=== PATIENT | female | born 1985 ===

== ENCOUNTER 2019-07-01 13:05 | Outpatient (CLI) | payer BC, SELFPAY ==
--- NOTE | 2019-07-04 09:00 | WPDHOLTEREM ---
Holter/Event Monitor Holter/Event Monitor Date of procedure: 07/01/19 Procedure Type: 48 hour holter monitor Indications: Tachycardia Conclusion: 1. 48 hour holter monitor on 07/01/19. 2. Underlying rhythm is sinus rhythm. HR range 56-162 bpm; average HR 96 bpm. 3. No premature supraventricular complexes. No supraventricular tachycardia. 4. There are 3 premature ventricular complexes. No ventricular tachycardia. 5. No sinoatrial or atrioventricular blocks. No significant pauses greater than 2 seconds. 6. Patient reports chest pain, sob and palpitations which demonstrate sinus rhythm, HR range 87-152 bpm.
== END 2019-07-01 13:06 | disposition home or self-care (01) ==
LOC: CHSCARD 13:10
PROVIDERS: PCP Nurse Practitioner Family; Visit Provider Nurse Practitioner Family
DX: R00.0 Tachycardia, unspecified (principal)
CPT/HCPCS: 93225; 93226

== ENCOUNTER 2021-10-13 14:14 | Outpatient (NON) | payer OTHER, SELFPAY ==
[2021-10-13 14:33] LABS: Add Urine Microscopic? YES; Appearance Urine Turbid (Clear); Bilirubin Urine Negative (Negative); Blood Urine 2+ (Negative); Color Urine Brown (Yellow); Glucose Urine UA Negative (Negative); Ketones Urine 1+ (Negative); Leukocyte Esterase Ur 3+ LEU/UL (Negative); Nitrate Urine Negative (Negative); Protein Urine 2+ (Negative); Specific Grav Ur >= 1.030 (1.010-1.020)
[2021-10-13 14:36] LABS: Bacteria Urine 3+ /hpf; Squamous Epithelial Cell Urine Moderate /hpf (Few); WBC Urine >75 /hpf (0-3)
== END 2021-10-13 14:15 | disposition home or self-care (01) ==
LOC: CHSLAB 14:16
PROVIDERS: Visit Provider Nurse Practitioner Family
DX: R39.9 Unspecified symptoms and signs involving the genitourinary system (principal)
CPT/HCPCS: 81001; 87077; 87086; 87088

== ENCOUNTER 2022-10-04 10:44 | Outpatient (CLI) | payer OTHER, BC, SELFPAY ==
[2022-10-04 11:05] LABS: Basophils Absolute Auto 0.02 K/mm3 (0.00-0.10); Basophils Percent Auto 0.4 % (0.0-1.0); Eosinophils Absolute Auto 0.06 K/mm3 (0.02-0.50); Eosinophils Percent Auto 1.1 % (1.0-6.0); Hematocrit 35.6 % (35.0-49.0); Hemoglobin 11.5 g/dL (12.0-15.0); Immature Granulocyte Absolute 0.01 K/mm3 (0.00-0.00); Immature Granulocyte Percent A 0.2 % (0.0-0.0); Lymphocytes Absolute Auto 1.58 K/mm3 (1.10-4.50); Lymphocytes Percent Auto 28.5 % (18.0-42.0); Mean Corpuscular HGB Conc 32.3 g/dL (32.0-36.0); Mean Corpuscular Hemoglobin 29.6 pg (27.0-31.0); Mean Corpuscular Volume 91.5 fL (78.0-102.0); Mean Platelet Volume 10.2 fl (9.2-11.8); Monocytes Percent Auto 7.2 % (2.0-11.0); Neutrophils Absolute Auto 3.5 K/mm3 (1.7-7.2); Neutrophils Percent Auto 62.6 % (50.0-70.0); Platelet Count Result 293 K/mm3 (150-420); Red Blood Count 3.89 M/mm3 (4.20-5.40); Red Cell Distribution Width 13.1 % (11.6-14.4); White Blood Count 5.5 K/mm3 (4.8-10.8)
[2022-10-04 11:52] LABS: Alanine Aminotransferase 15 U/L (14-59); Albumin Level 3.9 g/dL (3.4-5.0); Alkaline Phosphatase 66 U/L (46-116); Anion Gap 8 mmol/L (8-16); Aspartate Amino Transferase 19 U/L (15-37); Bilirubin,Total 0.5 mg/dL (0.00-1.00); Blood Urea Nitrogen 13 mg/dL (7-18); Calcium 9.8 mg/dL (8.5-10.1); Carbon Dioxide 27 mmol/L (21-32); Chloride 103 mmol/L (98-108); Cholesterol 246 mg/dL (0-200); Estimated Glomerular Filt Rate > 60; Glucose 91 mg/dL (70-99); HDL Direct 57 mg/dL (40-60); LDL Cholesterol Calculated 146 mg/dL (<130); Osmolality Calculated 286 mOsm/kg (285-295); Potassium 4.1 mmol/L (3.5-5.1); Sodium 138 mmol/L (136-145); Total Protein 7.3 g/dL (6.4-8.2); Triglycerides 216 mg/dL (0-150)
[2022-10-04 12:27] LABS: Thyroid Stimulating Hormone Reflex 1.55 u/IU/mL (0.36-3.74)
[2022-10-07 06:07] LABS: FSH 10.7 mIU/mL (***); LH 4.2 mIU/mL (***)
[2022-10-11 14:34] LABS: Estrogen 155 pg/mL
== END 2022-10-04 10:45 | disposition home or self-care (01) ==
LOC: CHSLAB 10:47
PROVIDERS: PCP Nurse Practitioner Family; Visit Provider Nurse Practitioner Family
DX: R61 Generalized hyperhidrosis (principal)
CPT/HCPCS: 36415; 80053; 80061; 82672; 83001; 83002; 84443; 85025

== ENCOUNTER 2023-01-22 04:19 | Observation (INO) | payer OTHER, BC, SELFPAY ==
[2023-01-22] VITALS (20 sets, daily range): BP systolic 91–129; BP diastolic 51–86; PULSE 64–107; RESP 10–18; TEMP 36.3–37.2; O2SAT 92–100
--- NOTE | ~2023-01-22 | XR_ITS ---
EXAMINATION: XR retrograde pyelo w/stent RT DATE: 01/22/2023 13:25 INDICATION: Right internal ureteral stent placement TECHNIQUE: Fluoroscopic images from a right internal ureteral stent placement are submitted for gagandeep huffman 16 seconds of fluoroscopy time. FINDINGS: There is a right double-J internal ureteral stent projecting in expected position, with proximal [place] loop at the level of the renal pelvis and distal loop in the pelvis within the bladder lumen. IMPRESSION: 1. Right internal ureteral stent placement. Please refer to real-time procedural findings for detai ls. Reviewed, dictated and finalized at location A. OR DIE DRAWING CHECKER IMPRESSION: 1. Right internal ureteral stent placement. Please refer to real-time procedu ral findings for details.
--- NOTE | ~2023-01-22 | CT_ITS ---
EXAMINATION: CT abdomen pelvis wo con DATE: 01/22/2023 05:41 INDICATION: Right flank pain TECHNIQUE: Computed tomography (CT) of the abdomen and pelvis was performed without intravenous contr ast. Automated exposure control and iterative reconstruction technique were employed. The dose-length product was 291.51 mGy-cm. COMPARISON: None FINDINGS: Calcified right lower lobe nodule consistent with old granulomatous disease. Heart size is normal. No pericardial or pleural effusion. There is an approximately 2 cm diameter region of high attenuation material at the anterior gastroesophageal junction likely related to endoscopic pulmonary injection a nd endoluminal plication for treatment of reflux disease. Correlate with clinical history. Liver, gal lbladder, spleen, pancreas, bilateral adrenal glands and left kidney are normal. There is an 8 x 4 x 3 mm obstructing stone at the right ureterovesicular junction with moderate more proximal right hydro ureteronephrosis. No other evident urolithiasis. The bladder, anteverted uterus and bilateral adnexa are unremarkable. Bowels including the appendix are normal. Small amount of likely physiologic free f luid in the cul-de-sac. No free intraperitoneal gas. No pathologically enlarged abdominal or pelvic l ymphadenopathy. Mild lumbar levocurvature with mild spondylosis. IMPRESSION: 1. Obstructing 8 x 4 x 3 mm stone at the right ureterovesicular junction with moderate right hydroure teronephrosis. Reviewed, dictated and finalized at location A. WORKER IMPRESSION: 1. Obstructing 8 x 4 x 3 mm stone at the right ureterovesicular junction with m oderate right hydroureteronephrosis.
[2023-01-22] MEDS: SODIUM CHLORIDE 0.9% IV 1,000 ML 999 ML IV CONT (05:14)
[2023-01-22] MEDS: ONDANSETRON INJ 4 MG/2 ML VIAL IV PUSH ×2 (05:15→05:55)
[2023-01-22] MEDS: HYDROmorphone HCL INJ (*CRX) 1 MG/ML SYR IV PUSH ×4 (05:15→10:12)
--- NOTE | 2023-01-22 05:35 | ED.GENADULT ---
HPI - General Adult General Chief complaint: Urogenital-Female Stated complaint: I think I have a kidney stone, cannot urinate Time Seen by Provider: 01/22/23 05:03 History of Present Illness HPI narrative: patient is a 37-year-old female who presents to emergency department with chief complaint of possible kidney stone. The patient reports that she has prior history of kidney stones and does have stone still present on her right kidney the patient reports that she started having dysuria for several days and was treated with Macrobid and also has been trying to push fluids patient states that the pain is not improved and reports that she started having pain in the right flank area the patient states she started become concerned for possible kidney stone and decided to come to the emergency department for evaluation. Related Data Allergies Allergy/AdvReac Type Severity Reaction Status Date / Time No Known Allergies Allergy Unknown Verified 11/01/22 08:50 Review of Systems Review of Systems: A 10 system review of systems was completed on the patient and is negative except for what is stated in the HPI. Nursing and ancillary documentation was reviewed. PMFSH Past Medical History Medical History Iron deficiency anemia Kidney stone Migraine Nicotine dependence Pain of sternum Surgical History Surgical History H/O dilation and curettage History of hysteroscopy Previous section x3 Family History Family History Mother Asthma Grandparent Congestive heart failure Grandparent Breast cancer Pancreatic cancer Social History Social History Social History: and has 3 children Smoking packs per day: 0.5 Smoking cigarettes per day: 10.0 Smoking status: Former smoker Tobacco type: e-cigarettes/vaping Alcohol intake: current Alcohol use details: 2-3 beers monthly Substance use: never Substance use type: does not use Living arrangements: with family Occupation/Education: occupation Additional occupation/education comments: [employer] Gender identity (if verbalized by the patient): Female Spiritual care concerns: No Exam Narrative: GENERAL: Well-appearing, well-nourished, and in no acute distress. HEAD: Normocephalic, atraumatic. EYES: PERRLA and EOMI. ENT: Nares clear, no rhinorrhea or epistaxis. Mucous membranes moist. NECK: Supple. CHEST: Clear to auscultation. No respiratory distress. HEART: Regular rate and rhythm. No murmur heard. Normal peripheral pulses. ABDOMEN: Soft, nontender, nondistended, normal active bowel sounds. EXTREMITIES: Normal range of motion. No edema. SKIN: Warm, dry, no rash. NEURO: No focal deficits. Alert and oriented x3. PSYCH: Normal mood and affect. Course Vital Signs Vital signs: Vital Signs Temperature 36.8 C 01/22/23 04:21 Pulse Rate 101 H 01/22/23 04:21 Respiratory Rate 18 01/22/23 04:21 Blood Pressure 124/80 01/22/23 04:21 Pulse Oximetry 95 01/22/23 04:21 Oxygen Delivery Room Air 01/22/23 04:21 Temperature 36.8 C 01/22/23 04:21 Pulse Rate 101 H 01/22/23 04:21 Respiratory Rate 18 01/22/23 04:21 Blood Pressure 124/80 01/22/23 04:21 Pulse Oximetry 95 01/22/23 04:21 Oxygen Delivery Room Air 01/22/23 04:21 Medical Decision Making Vital Signs Vital Signs: Vital Signs Temperature 36.8 C 01/22/23 04:21 Pulse Rate 101 H 01/22/23 04:21 Respiratory Rate 18 01/22/23 04:21 Blood Pressure 124/80 01/22/23 04:21 Pulse Oximetry 95 01/22/23 04:21 Oxygen Delivery Room Air 01/22/23 04:21 Temperature 36.8 C 01/22/23 04:21 Pulse Rate 101 H 01/22/23 04:21 Respiratory Rate 18 01/22/23 04:21 Blood Pressure
[2023-01-22 05:55] LABS: Basophils Percent Auto 0.3 % (0.2-1.2); Eosinophils Absolute Auto 0.1 K/mm3 (0-0.3); Hemoglobin 10.8 g/dL (12.0-15.0); Immature Granulocyte Absolute 0.01 K/mm3 (0.00-0.031); Immature Granulocyte Percent A 0.1 % (0-0.5); Lymphocytes Absolute Auto 2.36 K/mm3 (0.9-3.2); Lymphocytes Percent Auto 34.1 % (18.3-44.2); Mean Corpuscular HGB Conc 31.8 g/dl (32-36); Mean Corpuscular Hemoglobin 28.1 pg (26-34); Mean Corpuscular Volume 88.3 fl (80-100); Mean Platelet Volume 12.1 fl (7.4-10.4); Monocytes Absolute Auto 0.7 K/mm3 (0.1-0.6); Monocytes Percent Auto 9.8 % (2.6-8.5); Neutrophils Absolute Auto 3.8 K/mm3 (1.3-6.7); Neutrophils Percent Auto 54.7 % (45.5-73.1); Platelet Count Result 222 k/mm3 (150-375); Red Blood Count 3.85 M/mm3 (4.2-5.4); Red Cell Distribution Width 13.2 % (11.5-14.5); White Blood Count 6.9 K/mm3 (4.5-10.0)
[2023-01-22 06:07] LABS: Appearance Urine Cloudy (Clear); Bacteria Urine None Seen /hpf; Bilirubin Urine 2+ (Negative); Blood Urine 3+ (Negative); Color Urine Orange (Yellow); Glucose Urine UA Negative (Negative); Ketones Urine Negative (Negative); Leukocyte Esterase Ur 2+ LEU/UL (Negative); Need Manual Microscopic Reviewed; Nitrate Urine Positive (Negative); Non Pathogenic Casts 0-2; Protein Urine 1+ mg/dL (Negative); Specific Grav Ur 1.027 (1.001-1.035); Squamous Epithelial Cell Urine Few /hpf (Few); WBC Urine 0-5 /hpf
[2023-01-22 06:08] LABS: Add Urine Microscopic? YES
[2023-01-22 06:10] LABS: Alanine Aminotransferase 14 U/L (6-35); Albumin Level 4.6 g/dL (3.5-5.1); Alkaline Phosphatase 57 U/L (38-126); Anion Gap 11 mmol/L (8-16); Aspartate Amino Transferase 30 U/L (14-36); Bilirubin,Total 0.6 mg/dL (0.2-1.3); Blood Urea Nitrogen 22 mg/dL (7-17); Calcium 10.1 mg/dL (8.4-10.2); Carbon Dioxide 18 mmol/L (22-30); Chloride 105 mmol/L (98-107); Estimated CRCL calculation 93 ml/min; Estimated Glomerular Filt Rate > 60; Glucose 117 mg/dL (65-110); Potassium 3.7 mmol/L (3.4-5.0); Sodium 134 mmol/L (137-145)
--- NOTE | 2023-01-22 08:40 | PM.IMHP ---
H&P: HPI History of Present Illness Date/Time: 01/22/23 08:40 Chief Complaint: Right flank pain, dysuria Narrative: 37F who presents with several days of dysuria and UTI like symptoms, who developed right flank pain yesterday evening associated with nausea. Multiple prior stones, she has not required surgical intervention in the past. She denies fevers or chills. She reports she has been on macrobid for several days along with pyridium. I discussed her situation in detail with her and her s/o, her UA demonstrates LE and WBC consistent with ureteral stone, no bacteria on microscopy, however it is nitrite positive, likely from the Azo, her WBC is 6.9. As I cannot totally r/o infection, she agrees with proceeding with cystoscopy and ureteral stent placement and delayed URS/LL to remove the stone once her culture demonstrates sterility. Hopefully, she will be able to discharge with oral antibiotics after her stent placement. Review of Systems Constitutional: Constitutional: Reports as per HPI ENT: Reports system reviewed and no additional complaints, except as documented Respiratory: Respiratory: Reports no additional respiratory complaints Gastrointestinal: Gastrointestinal: Reports abdominal pain Genitourinary: Genitourinary: Reports hematuria, Reports dysuria and Reports flank pain Musculoskeletal: Musculoskeletal: Reports no additional musculoskeletal complaints Integumentary/Breasts: Skin/Breast: Reports system reviewed and no additional complaints, except as docu Neurologic: Reports system reviewed and no additional complaints, except as documented Psychiatric: Psychiatric: Reports no additional psychiatric complaints Endocrine: Endocrine: Reports no additional endocrine complaints Hematologic/Lymphatic: Hematologic/Lymphatic: Reports no additional hematologic/lymphatic complaints Allergic/Immunologic: Allergic/Immunologic: Reports no additional allergic/immunologic complaints PMF Past Medical History Medical History Iron deficiency anemia Kidney stone Migraine Nicotine dependence Pain of sternum Surgical History Surgical History H/O dilation and curettage History of hysteroscopy Previous section x3 Family History Family History Mother Asthma Grandparent Congestive heart failure Grandparent Breast cancer Pancreatic cancer Social History Social History Social History: and has 3 children Smoking packs per day: 0.5 Smoking cigarettes per day: 10.0 Smoking status: Former smoker Tobacco type: e-cigarettes/vaping Alcohol intake: current Alcohol use details: 2-3 beers monthly Substance use: never Substance use type: does not use Living arrangements: with family Occupation/Education: occupation Additional occupation/education comments: [employer] Gender identity (if verbalized by the patient): Female Spiritual care concerns: No Meds Home Medications and Allergies Home Medications Medication Instructions Recorded Confirmed Type buspirone 15 mg tablet 15 mg PO BID PRN anxiety #60 tabs 02/24/22 10/04/22 Rx diclofenac sodium 50 mg 50 mg PO TID PRN pain #45 tabs 08/11/22 10/04/22 Rx tablet,delayed release metoprolol succinate 50 mg 50 mg PO DAILY #90 tabs 08/11/22 10/04/22 Rx tablet,extended release 24 hr ondansetron HCl 4 mg tablet 4 mg PO Q8H PRN nausea and 08/11/22 10/04/22 Rx vomiting #30 tabs rizatriptan 10 mg tablet (Maxalt) 10 mg PO ONCE PRN migraine 08/11/22 10/04/22 Rx headache #20 tabs tamsulosin 0.4 mg capsule 0.4 mg PO DAILY PRN kidney stone 08/11/22 10/04/22 Rx #20 caps tizanidine 2 mg capsule 2 mg PO TID PRN muscle spasticity 08/11/22 10/04/22 Rx #20 caps sertraline 100 mg t
--- NOTE | 2023-01-22 12:04 | PC.NURSE ---
Spoke with Katty SINGLETON in the PACU regarding pt status. She stated she would call back when they had a room available for the pt
--- NOTE | 2023-01-22 12:32 | WPDHPUPDATE1 ---
History and Physical Update Update Date/Time: 01/22/23 12:32 History and Physical has been reviewed, including an updated exam of the patient. There are NO changes in the patient's condition. Risks, benefits, and alternatives have been discussed and questions answered. Patient agrees to proceed with procedure.
--- NOTE | 2023-01-22 12:50 | WPDANESEPPF ---
Anes - Initial Pre Proc Eval Procedure: Operation Date: 01/22/23 12:30 Proposed Procedures p Cysto, RPG, Stone Ext, Stent Placement(Right) - Lorne Castillo MD Date/Time: 01/22/23 12:50 Surgeon: Lorne Castillo MD Pre Op Diagnosis: I think I have a kidney stone, cannot urinate Patient Data Age: 37 Gender: F Height: 1.63 m Weight: 59.09 kg Last Vital Signs Temp 36.8 C 01/22/23 04:21 Pulse 98 01/22/23 11:31 Resp 16 01/22/23 11:31 BP 121/86 01/22/23 11:31 Pulse Ox 98 01/22/23 11:31 O2 Del Method Room Air 01/22/23 04:21 Allergies Allergy/AdvReac Type Severity Reaction Status Date / Time No Known Allergies Allergy Unknown Verified 11/01/22 08:50 Home Medications Medication Instructions Recorded Confirmed Type buspirone 15 mg tablet 15 mg PO BID PRN anxiety #60 tabs 02/24/22 10/04/22 Rx diclofenac sodium 50 mg 50 mg PO TID PRN pain #45 tabs 08/11/22 10/04/22 Rx tablet,delayed release metoprolol succinate 50 mg 50 mg PO DAILY #90 tabs 08/11/22 10/04/22 Rx tablet,extended release 24 hr ondansetron HCl 4 mg tablet 4 mg PO Q8H PRN nausea and 08/11/22 10/04/22 Rx vomiting #30 tabs rizatriptan 10 mg tablet (Maxalt) 10 mg PO ONCE PRN migraine 08/11/22 10/04/22 Rx headache #20 tabs tamsulosin 0.4 mg capsule 0.4 mg PO DAILY PRN kidney stone 08/11/22 10/04/22 Rx #20 caps tizanidine 2 mg capsule 2 mg PO TID PRN muscle spasticity 08/11/22 10/04/22 Rx #20 caps sertraline 100 mg tablet See Rx Instructions .Route 10/14/22 10/18/22 Rx .COMPLEX #42 tabs oxycodone-acetaminophen 5 mg-325 1 tablet PO Q6H PRN pain 3 days 01/22/23 Rx mg tablet (Percocet) #12 tabs Laboratory Tests 01/22/23 01/22/23 04:31 04:43 WBC 6.9 K/mm3 (4.5-10.0) RBC 3.85 L M/mm3 (4.2-5.4) Hgb 10.8 L g/dL (12.0-15.0) Hct 34.0 L % (37.0-47.0) MCV 88.3 fl (80-100) MCH 28.1 pg (26-34) MCHC 31.8 L g/dl (32-36) RDW 13.2 % (11.5-14.5) Plt Count 222 k/mm3 (150-375) MPV 12.1 H fl (7.4-10.4) Immature Gran % (Auto) 0.1 % (0-0.5) Neut % (Auto) 54.7 % (45.5-73.1) Lymph % (Auto) 34.1 % (18.3-44.2) [place] % (Auto) 9.8 H % (2.6-8.5) Eos % (Auto) 1.0 % (0-4.4) Baso % (Auto) 0.3 % (0.2-1.2) Lymph # (Auto) 2.36 K/mm3 (0.9-3.2) [place] # (Auto) 0.7 H K/mm3 (0.1-0.6) Eos # (Auto) 0.1 K/mm3 (0-0.3) Baso # (Auto) 0.0 K/mm3 (0.0-0.1) Abs Immat Gran (auto) 0.01 K/mm3 (0.00-0.031) Absolute Neuts (auto) 3.8 K/mm3 (1.3-6.7) Absolute Nucleated RBC 0.0 K/mm3 (0.0-0.012) Nucleated RBC % 0.0 % (0.0-0.2) Sodium 134 L mmol/L (137-145) Potassium 3.7 mmol/L (3.4-5.0) Chloride 105 mmol/L (98-107) Carbon Dioxide 18 L mmol/L (22-30) Anion Gap 11 mmol/L (8-16) BUN 22 H mg/dL (7-17) Creatinine 0.60 L mg/dL (0.7-1.0) Estim Creat Clear Calc 93 ml/min Estimated GFR > 60 (59 - ) Glucose 117 H mg/dL (65-110) Calcium 10.1 mg/dL (8.4-10.2) Total Bilirubin 0.6 mg/dL (0.2-1.3) AST 30 U/L (14-36) ALT 14 U/L (6-35) Alkaline Phosphatase 57 U/L (38-126) Total Protein 8.0 g/dL (6.3-8.2) Albumin 4.6 g/dL (3.5-5.1) Urine Color Cherry Plain H (Yellow) Urine Appearance Cloudy H (Clear) Urine pH 5.0 (5.0-9.0) Ur Specific [place] 1.027 (1.001-1.035) Urine Protein 1+ H mg/dL (Negative) Urine Glucose (UA) Negative mg/dL (Negative) Urine Ketones Negative mg/dL (Negative) Ur Blood (Man) 3+ H (Negative) Urine Nitrate Positive H (Negative) Urine Bilirubin 2+ H (Negative) Urine Urobilinogen 1.0 mg/dL (<2.0) Add Ur Microanalysis Reviewed Leukocyte Esterase Rfl 2+ H RUPA/UL (Negativ
--- NOTE | 2023-01-22 13:24 | W.PM.PROC2 ---
Procedure Note - Detailed Date of Procedure 01/22/23 Pre-op Diagnosis Right ureteral stone Post-op Diagnosis Same Procedure Performed 1. Cystoscopy and right ureteral stent placement 2. Right retrograde pyelogram 3. Fluoroscopy with interpretation of images, less than 1 hour. Surgeon Lorne Castillo MD Anesthesia General Findings 1. No bladder masses or lesions 2. Right retrograde pyelogram with moderate hydronephrosis. 3. Appropriate placement of right ureteral stent. 4. Flocculent pyridium stained urine drained upon stent placement, sent for culture. Description of Procedure After a discussion of benefits and risks the patient offered informed written consent. She was taken to the operating room and anesthesia was administered, she was transferred to the dorsal lithotomy position and prepped and draped in the standard sterile fashion. A call to order was performed. A cystoscope was placed atraumatically and cystoscopy performed with the aforementioned findings. The right ureteral orifice was approached with the cystoscope and a wire advanced into the right ureteral orifice. A 5F open-ended catheter was then advanced to the midureter and a retrograde pyelogram was performed with the aforementioned findings. The wire was replaced and over the wire a 6F right ureteral stent was placed with excellent curl in renal pelvis noted on closing KUB and in bladder by direction vision. The bladder was drained and the cystoscope removed. She was cleaned of betadine prep, transferred to the supine position and awoken from anesthesia. Implants 6F variable length stent. Estimated Blood Loss 2 Complications No immediate complications Condition Stable Disposition PACU
[2023-01-22] MEDS: LACTATED RINGERS 1,000 ML 30 ML IV CONT (13:25)
--- NOTE | 2023-01-22 14:54 | ADMGEN ---
This patient, Shefali Pickard, was admitted to Medical Room 247-. Patient/family oriented to hospital policies and general routines including ID bracelet, bed and alarms, visiting hours, pain management, procedures, bathroom and other care routines, personal items, smoking policy, room service/diet, and visiting hours. Information on how to activate the Rapid Response Team has been discussed. Patient/Family are encouraged to report perceived risks to care and to ask questions if they do not understand what they are told or what they should do.
[2023-01-22] MEDS: METOPROLOL SUCCINATE EXT REL 50 MG TABCR PO (15:46)
[2023-01-22] MEDS: SERTRALINE HCL 50 MG TABLET 100 MG PO (16:38)
[2023-01-22] MEDS: HYDROcodone/acetaminophen (*CRX) 5-325 MG TABLET 1 TAB PO (20:40)
[2023-01-23 02:19] VITALS: BP 96/57; PULSE 96; RESP 17; TEMP 36.6; O2SAT 96
[2023-01-23 05:13] VITALS: BP 91/46; PULSE 99; RESP 17; TEMP 36.9; O2SAT 97
[2023-01-23 06:13] LABS: Hematocrit 31.2 % (37.0-47.0); Hemoglobin 9.7 g/dL (12.0-15.0)
[2023-01-23 06:35] LABS: Anion Gap 7 mmol/L (8-16); Blood Urea Nitrogen 14 mg/dL (7-17); Calcium 9.7 mg/dL (8.4-10.2); Carbon Dioxide 22 mmol/L (22-30); Chloride 109 mmol/L (98-107); Estimated CRCL calculation 110 ml/min; Estimated Glomerular Filt Rate > 60; Glucose 95 mg/dL (65-110); Potassium 3.6 mmol/L (3.4-5.0); Sodium 138 mmol/L (137-145)
[2023-01-23 08:00] VITALS: O2SAT 97
[2023-01-23] MEDS: SERTRALINE HCL 50 MG TABLET 100 MG PO (08:49)
[2023-01-23 08:50] VITALS: BP 94/60
[2023-01-23] MEDS: ENOXAPARIN 40 MG/0.4 ML SYRINGE SUB-Q (08:50)
[2023-01-23] MEDS: TAMSULOSIN HCL 0.4 MG CAPSULE PO (10:11)
[2023-01-23] MEDS: HYOSCYAMINE SULFATE 0.125 MG TABLET SUBLINGUAL (10:11)
[2023-01-23] MEDS: HYDROcodone/acetaminophen (*CRX) 5-325 MG TABLET 1 TAB PO (11:20)
--- NOTE | 2023-01-23 11:32 | WPDUROPN2 ---
Progress Note: A&P Assessment and Plan (1) Ureterolithiasis: Code(s): N20.1 - Calculus of ureter Status: Acute Assessment and Plan: Will discharge home today on pain medications, anticholinergics, antibiotics. Outpatient stone management will be arranged Subjective Subjective Date/Time Seen: 01/23/23 11:32 Interval history: Feeling well today. Minimal discomfort from the stent. Review of Systems Review of Systems: No acute distress Resting comfortably in bed Objective Data Vital Signs Vital Signs: Vital Signs - 24 hr 01/22/23 13:25 01/22/23 13:40 01/22/23 13:45 Temperature 97.8 F Pulse Rate 64 90 88 Respiratory Rate 10 L 10 L 10 L Blood Pressure 92/51 L 103/73 106/79 Pulse Oximetry 99 100 100 Oxygen Delivery Simple Face Mask Simple Face Mask Simple Face Mask Oxygen Flow Rate 6 6 6 01/22/23 14:00 01/22/23 14:30 01/22/23 14:43 Temperature Pulse Rate 90 100 105 H Respiratory Rate 10 L 13 12 Blood Pressure 106/68 114/73 114/70 Pulse Oximetry 100 98 98 Oxygen Delivery Simple Face Mask Room Air Room Air Oxygen Flow Rate 6 01/22/23 14:59 01/22/23 15:06 01/22/23 15:46 Temperature 97.5 F L 97.6 F Pulse Rate 96 98 98 Respiratory Rate 16 16 Blood Pressure 110/74 114/65 Pulse Oximetry 99 100 Oxygen Delivery Oxygen Flow Rate 01/22/23 16:09 01/22/23 18:45 01/22/23 21:10 Temperature 97.3 F L 97.5 F L 98.9 F Pulse Rate 106 H 107 H 93 Respiratory Rate 16 16 18 Blood Pressure 114/78 98/53 L 91/51 L Pulse Oximetry 99 92 96 Oxygen Delivery Oxygen Flow Rate 01/22/23 20:00 01/23/23 02:19 01/23/23 05:13 Temperature 97.9 F 98.5 F Pulse Rate 93 96 99 Respiratory Rate 18 17 17 Blood Pressure 96/57 L 91/46 L Pulse Oximetry 96 96 97 Oxygen Delivery Room Air Oxygen Flow Rate 01/23/23 08:50 01/23/23 08:00 Temperature Pulse Rate Respiratory Rate Blood Pressure 94/60 L Pulse Oximetry 97 Oxygen Delivery Room Air Oxygen Flow Rate Intake/Output Intake/Output: Intake & Output 01/20/23 01/21/23 01/22/23 01/23/23 23:59 23:59 23:59 23:59 Intake Total 1920 840 Output Total 1300 Balance 620 840 Meds/Results Medications: Active Medications Generic Name Dose Route Start Last Admin Trade Name Freq PRN Reason Stop Dose Admin Hydrocodone Bitart/Acetaminophen 1 tab 01/22/23 12:33 01/23/23 11:20 Hydrocodone/Acetaminophen (*Crx) 5-325 Mg Tablet PO 1 tab Q4H PRN Administration Pain Rated 1-6 Buspirone HCl 15 mg 01/22/23 15:19 Buspirone Hcl 5 Mg Tablet PO BID PRN anxiety Diclofenac Sodium 50 mg 01/22/23 15:19 Diclofenac Sod 25 Mg Tablet.Ec PO TID PRN pain Docusate Sodium 100 mg 01/22/23 17:00 01/23/23 08:50 Docusate Sodium 100 Mg Capsule PO Not Given BID TEREZA Enoxaparin Sodium 40 mg 01/23/23 09:00 01/23/23 08:50 Enoxaparin 40 Mg/0.4 Ml Syringe SUB-Q 40 mg DAILY TEREZA Administration Fentanyl Citrate 25 mcg 01/22/23 12:55 Fentanyl Citrate Inj (*Crx) 100 Mcg/2 Ml Vial IV PUSH Q2M PRN Pain Hyoscyamine 0.125 mg 01/22/23 12:33 01/23/23 10:11 Hyoscyamine Sulfate 0.125 Mg Tablet SUBLINGUAL 0.125 mg Q6H PRN Administration Bladder Spasm Ceftriaxone Sodium 1 gm in 50 mls @ 100 mls/hr 01/23/23 09:00 01/23/23 10:10 Rocephin 1 Gm/Ns 50 Ml IVPB Infused Q24H TEREZA Infusion Lactated Ringer's 1,000 mls @ 30 mls/hr 01/22/23 12:55 01/22/23 14:36 Lr - Lactated Ringers Iv IV CONT Infused .Q24H TEREZA Infusion Metoprolol Succinate 50 mg 01/22/23 15:30 01/22/23 15:46 Metoprolol Succinate Ext Rel 50 Mg Tabcr PO 50 mg DAILY TEREZA Administration Miscellaneous Information 1 each 01/23/23 00:01 Med Rec Order Clarification XX 02/22/23 00:00 CLARIFY TEREZA Morphine Sulfate 2 mg 01/22/23 12:33 Morphine Sulfate (*Crx) 2 Mg/Ml Inj IV PUSH Q2H PRN Pain Rated 7-10 Naloxone HCl 0.1 mg
--- NOTE | 2023-01-23 11:38 | PM.DS ---
DS: Admitting Diagnosis Discharge Date 01/23/2023 Admitting Diagnosis Right ureteral stone DS: Discharge Diagnosis Discharge Diagnosis Plan Discharge home today. Stent in place DS: Summary Hospital Course Reason for hospitalization: She was admitted the hospital. She had an abnormal urinalysis likely consistent with Pyridium affect. She had a large distal right ureteral stone. Stent was placed. She did well postoperatively. She had no fevers. Pain is controlled. She will be discharged home with outpatient stone management Hospital Course: See above Status at Discharge Cognitive/behavioral status at discharge: Stable Time Spent with Patient Time attestation: Total time spent providing and/or coordinating discharge services: Less than 30 minutes Exam Narrative: No acute distress Normal breathing Alert orient x3 Pain control DS: Data Data Completed and Pending Labs on day of discharge: Labs from last 24 hours 01/23/23 05:41 Hgb 9.7 L Hct 31.2 L Sodium 138 Potassium 3.6 Chloride 109 H Carbon Dioxide 22 Anion Gap 7 L BUN 14 D Creatinine 0.50 L Estim Creat Clear Calc 110 Estimated GFR > 60 Glucose 95 Calcium 9.7 Discharge Plan Discharge Patient Disposition: Home, Self-Care Discharge Instructions: Okay to discharge home. Urology will call to arrange outpatient stone management Patient Instructions: How to Stop Smoking (GEN) Follow-up/Referrals: Coral Meredith APRN [Primary Care Provider] - Discharge Medications: New oxycodone-acetaminophen [Percocet] 5-325 mg tablet 1 tablet PO Q6H PRN (Reason: pain) 3 Days Qty: 12 0RF hydrocodone-acetaminophen 5-325 mg tablet 1 tablet PO Q6H PRN (Reason: pain) Qty: 20 0RF phenazopyridine [Pyridium] 200 mg tablet 200 mg PO TID PRN (Reason: pain) Qty: 30 0RF oxybutynin chloride 5 mg tablet 5 mg PO TID Qty: 60 0RF ciprofloxacin HCl [Cipro] 500 mg tablet 500 mg PO Q12H Qty: 6 0RF Continued buspirone 15 mg tablet 15 mg PO BID PRN (Reason: anxiety) Qty: 60 2RF Rx Instructions: Take 1 tablet (15 mg) by mouth every 12 hours, up to two times daily as needed. tizanidine 2 mg capsule 2 mg PO TID PRN (Reason: muscle spasticity) Qty: 20 0RF Rx Instructions: may cause drowsiness ondansetron HCl 4 mg tablet 4 mg PO Q8H PRN (Reason: nausea and vomiting) Qty: 30 3RF diclofenac sodium 50 mg tablet,delayed release (DR/EC) 50 mg PO TID PRN (Reason: pain) Qty: 45 0RF Rx Instructions: Be sure to take with food. metoprolol succinate 50 mg tablet extended release 24 hr 50 mg PO DAILY Qty: 90 2RF rizatriptan [Maxalt] 10 mg tablet 10 mg PO ONCE PRN (Reason: migraine headache) Qty: 20 0RF Rx Instructions: Take 1 tablet with onset of symptoms. May repeat once after at least 2 hours, do not exceed 30 mg/24 hours. sertraline 100 mg tablet See Rx Instructions .ROUTE .COMPLEX Qty: 42 1RF Dose Instruction: TAKE 1 TABLET BY MOUTH EVERY DAY Rx Instructions: TAKE 1 TABLET BY MOUTH EVERY DAY Discontinued tamsulosin 0.4 mg capsule 0.4 mg PO DAILY PRN (Reason: kidney stone) Qty: 20 0RF
== END 2023-01-23 13:45 | disposition home or self-care (01) ==
LOC: ANHED 07:54 → ANHSURGERY 08:51 → ANH2MED 15:02
PROVIDERS: Admitting Provider Urology; Emergency Provider Emergency Medicine; PCP Nurse Practitioner Family; Visit Provider Urology
PROC: (CPT 52352; principal; 2023-01-22 11:30)
DX: N13.2 Hydronephrosis with renal and ureteral calculous obstruction (principal); D50.0 Iron deficiency anemia secondary to blood loss (chronic); F41.9 Anxiety disorder, unspecified; R11.2 Nausea with vomiting, unspecified; G43.909 Migraine, unspecified, not intractable, without status migrainosus; M62.838 Other muscle spasm; Z87.891 Personal history of nicotine dependence; F10.90 Alcohol use, unspecified, uncomplicated; Z79.891 Long term (current) use of opiate analgesic
CPT/HCPCS: 52332; 36415; 74176; 74420; 80048; 80053; 81001; 81025; 85014; 85018; 85025; 87086; 96361; 96365; 96375; 96376; 99285; A9270; C1758; C1769; C2617; G0378; J0696; J1100; J1170; J1650; J2405; J2704; J7030; J7120; Q9966

== ENCOUNTER 2023-03-19 10:02 | Outpatient (CLI) | payer OTHER, BC, SELFPAY ==
--- NOTE | ~2023-03-19 | XR_ITS ---
XR abdomen/kub 1V 03/19/2023 10:18 INDICATION: Renal stone TECHNIQUE: KUB COMPARISON: None FINDINGS: Bowel gas pattern is normal. There is no evidence of free air, mass, organomegaly, ascites or obstruction. No abnormal calculi are seen. The bones appear intact. IMPRESSION: 1: No acute abdominal abnormality identified. Reviewed, dictated and finalized at location A. R CALIBRATOR
== END 2023-03-19 10:03 | disposition home or self-care (01) ==
PROVIDERS: PCP Nurse Practitioner Family; Visit Provider Urology
DX: N20.0 Calculus of kidney (principal)
CPT/HCPCS: 74018

== ENCOUNTER 2023-04-14 11:40 | Outpatient (NON) | payer OTHER, BC, SELFPAY ==
[2023-04-14 13:00] LABS: Appearance Urine Cloudy (Clear); Bilirubin Urine Negative (Negative); Blood Urine 3+ (Negative); Color Urine Yellow (Yellow); Glucose Urine UA Negative (Negative); Ketones Urine Negative (Negative); Leukocyte Esterase Ur Negative LEU/UL (Negative); Nitrate Urine Negative (Negative); Protein Urine Negative (Negative); Specific Grav Ur >= 1.030 (1.010-1.020); Urobilinogen Urine 0.2 mg/dL (0.2-1.0)
[2023-04-14 13:08] LABS: Add Urine Microscopic? YES; RBC Urine >75 /hpf (0-2)
[2023-04-14 13:09] LABS: Bacteria Urine 1+ /hpf; Squamous Epithelial Cell Urine Few /hpf (Few); WBC Urine None seen /hpf (0-3)
== END 2023-04-14 11:41 | disposition home or self-care (01) ==
LOC: CHSLAB 11:43
PROVIDERS: Visit Provider Nurse Practitioner Family
DX: N39.0 Urinary tract infection, site not specified (principal)
CPT/HCPCS: 81001

== ENCOUNTER 2023-07-30 11:54 | Emergency (ER) | payer OTHER, BC, SELFPAY ==
[2023-07-30 11:56] VITALS: BP 109/69; PULSE 79; RESP 20; TEMP 36.3; O2SAT 100
--- NOTE | 2023-07-30 13:21 | ED.GENADULT ---
HPI - General Adult General Chief complaint: Allergic Reaction Stated complaint: allergic reaction Time Seen by Provider: 07/30/23 12:54 History of Present Illness HPI narrative: This is a 38-year-old female presenting with a rash. She was clearing out brush around her house and believe she came in contact with poison marychuy. She was seen in urgent care afterwards and received 1 dose of steroids. Her rash has continued to get worse. Other symptoms. Related Data Allergies Allergy/AdvReac Type Severity Reaction Status Date / Time No Known Allergies Allergy Unknown Verified 07/30/23 12:56 [facility] Past Medical History Medical History Iron deficiency anemia Kidney stone Migraine Nicotine dependence Pain of sternum SVT (supraventricular tachycardia) Surgical History Surgical History H/O dilation and curettage History of hysteroscopy Previous section x3 Family History Family History Mother Asthma Grandparent Congestive heart failure Grandparent Breast cancer Pancreatic cancer Social History Social History Social History: and has 3 children Smoking packs per day: 0.5 Smoking cigarettes per day: 10.0 Smoking status: Current every day smoker Additional smoking assessment comments: vapes daily Alcohol intake: never Alcohol use details: 2-3 beers monthly Substance use: never Substance use type: does not use Lack of Transportation: No Lack of Food: Never True Current Housing: I Have Housing Concerned About Future Housing: No Difficulty Paying Gas/Electric Bills: No Difficulty Paying for Meds: No Currently Unemployed: No Education: Associate Degree Difficulty w/ Childcare or Family Care: No Living arrangements: with family Occupation/Education: occupation Additional occupation/education comments: [employer] Gender identity (if verbalized by the patient): Female Spiritual care concerns: No Exam Narrative: APPEARANCE: No apparent distress. Head: atraumatic. EYES: EOMI, NOSE: Atraumatic NECK: Trachea midline RESPIRATORY: No increased rate of breathing CARDIOVASCULAR: RRR, ABDOMINAL: Non-distended MUSCULOSKELETAl: No obvious deformities NEURO: Alert. Moving 4/4 extremities SKIN:: Scattered vesicular rash over the patient's face arms and thighs. no evidence of overlying infection. PSYCHIATRIC: Normal affect Course Vital Signs Vital signs: Vital Signs Temperature 97.4 F L 07/30/23 11:56 Pulse Rate 79 07/30/23 11:56 Respiratory Rate 20 07/30/23 11:56 Blood Pressure 109/69 07/30/23 11:56 Pulse Oximetry 100 07/30/23 11:56 Oxygen Delivery Room Air 07/30/23 11:56 Temperature 97.4 F L 07/30/23 11:56 Pulse Rate 79 07/30/23 11:56 Respiratory Rate 20 07/30/23 11:56 Blood Pressure 109/69 07/30/23 11:56 Pulse Oximetry 100 07/30/23 11:56 Oxygen Delivery Room Air 07/30/23 11:56 Medical Decision Making MDM Narrative Medical decision making narrative: -Course: 38-year-old female presenting with poison marychuy exposure. Patient given a dose of steroids in a 3 week taper. Patient discharged primary care follow-up. Given return precautions for overlying superinfection -DDX includes but is not limited to: poison marychuy, dermatitis, allergic reaction -Interventions: 10 mg dexamethasone -Shared decision making / Disposition: discharge -RX prednisone taper Vital Signs Vital Signs: Vital Signs Temperature 97.4 F L 07/30/23 11:56 Pulse Rate 79 07/30/23 11:56 Respiratory Rate 20 07/30/23 11:56 Blood Pressure 109/69 07/30/23 11:56 Pulse Oximetry 100 07/30/23 11:56 Oxygen Delivery Room Air 07/30/23 11:56 Temperature 97.4 F L 07/30/23 11:56 Pulse Rate 79 07/30/23 11:56
[2023-07-30] MEDS: dexAMETHasone SOD PHOS INJ 10 MG/ML 1 ML VIAL IM (13:26)
[2023-07-30 13:35] VITALS: BP 115/78; PULSE 78; RESP 16; TEMP 36.6; O2SAT 99
== END 2023-07-30 13:37 | disposition home or self-care (01) ==
PROVIDERS: Emergency Provider Emergency Medicine; PCP Nurse Practitioner Family
DX: L23.7 Allergic contact dermatitis due to plants, except food (principal); F17.290 Nicotine dependence, other tobacco product, uncomplicated; D64.9 Anemia, unspecified; Z87.442 Personal history of urinary calculi
CPT/HCPCS: 96372; 99283; J1100